=== PATIENT | male | born 1940 | race Caucasian/White ===

== ENCOUNTER 2022-11-20 10:37 | Inpatient (IN) | payer MEDICARE, OTHER, SELFPAY ==
[2022-11-20] VITALS (40 sets, daily range): BP systolic 109–164; BP diastolic 47–105; PULSE 72–103; RESP 13–25; TEMP 36.1–36.8; O2SAT 95–100; BMI 22.8
--- NOTE | ~2022-11-20 | XR_ITS ---
XR chest 1V portable DATE: 11/22/2022 12:21 INDICATION: Lung crackles TECHNIQUE: Portable upright AP chest on 11/22/2022 at 1216 hours COMPARISON: None FINDINGS: There is suggestion of a large mass density overlying the left perihilar region; differenti al diagnosis includes pulmonary malignancy versus prominent pulmonary consolidation. There is patchy infiltrate throughout much of the left lung and right lower lung. Heart size is not optimally evaluated because of obscured left cardiac margin due to infiltrate and m agnification due to portable projection. A prosthetic cardiac valve is noted. There is aortic arch ca lcification. Diffuse osteopenia. IMPRESSION: Large mass density overlying the left perihilar area, suspicious for lung cancer; conside r CT thorax with IV contrast material for further evaluation Patchy bilateral pulmonary infiltrates, which may be due to pneumonia, pulmonary edema and/or aspirat ion Reviewed, dictated and finalized at location A. IMPRESSION: Large mass density overlying the left perihilar area, suspicious fo r lung cancer; consider CT thorax with IV contrast material for further evaluat ion Patchy bilateral pulmonary infiltrates, which may be due to pneumonia, pulmonar y edema and/or aspiration
--- NOTE | ~2022-11-20 | CT_ITS ---
EXAMINATION: CT brain wo con DATE: 11/23/2022 20:19 INDICATION: dizziness and balance issues. . TECHNIQUE: Computed tomography (CT) of the head was performed without intravenous contrast. The mA wa s adjusted according to patient size. Iterative reconstruction technique was employed. The dose-lengt h product was 681.00 mGy-cm. COMPARISON: None. FINDINGS: No acute intracranial hemorrhage or extra-axial fluid collection. No hydrocephalus, mass, or herniation. No acute ischemic infarct. Unremarkable dural venous sinus attenuation. No acute osseous abnormality. Thinning of the calvarium overlying the left frontal lobe with surround ing circumscribed cortical lucencies. Right mastoid fluid with surrounding sclerosis, dependent mucosal thickening versus air-fluid level i n the right maxillary sinus, the remaining aerated spaces are clear aerated spaces are clear. Moderate atrophy and severe chronic white matter change. Atherosclerotic intracranial calcification. Bilateral lens replacements. Bilateral basal ganglia calcification. IMPRESSION: 1. No acute intracranial process. 2. Presumed postsurgical/post therapeutic change in the left frontal bone, correlate with history and physical exam. 3. Right mastoid fluid with sclerosis, as can be seen with mastoiditis in the appropriate clinical co ntext. 4. Potential dependent sphenoid sinus fluid may represent acute sinusitis. Reviewed, dictated and finalized at location K. IMPRESSION: 1. No acute intracranial process. 2. Presumed postsurgical/post therapeutic change in the left frontal bone, braxton elate with history and physical exam. 3. Right mastoid fluid with sclerosis, as can be seen with mastoiditis in the a ppropriate clinical context. 4. Potential dependent sphenoid sinus fluid may represent acute sinusitis.
--- NOTE | ~2022-11-20 | CT_ITS ---
EXAMINATION: CT diagnostic chest w con DATE: 11/22/2022 16:46 INDICATION: Left lung mass seen on chest x-ray TECHNIQUE: Computed tomography (CT) of the chest was performed with 75 cc Omnipaque 350 intravenous c ontrast. The dose-length product was 373.83 mGy-cm. Automated exposure control and iterative reconstr uction technique were employed. COMPARISON: Chest x-ray dated 11/22/2022 FINDINGS: There is a large left upper lobe mass measuring 9.6 x 7.8 x 6.1 cm, consistent with broncho genic carcinoma until proven otherwise. Small left pleural effusion. There is an 11 mm right lower lo be nodule, image 60. There are are coarse interstitial changes peripherally, likely chronic fibrosis. There is a 2 cm right upper lobe nodule, image 22. There are scattered calcified granulomas of the l corwin parenchyma. No pneumothorax. The left upper lobe mass appears to invade the mediastinum with mass effect on the left pulmonary artery. There is mediastinal and bilateral hilar lymphadenopathy, consi stent with metastatic disease. There is a prosthetic aortic valve. Moderate thoracic spondylosis. The re are gallstones. There is renal atrophy, partially visualized. IMPRESSION: 1. Bilateral pulmonary nodules/masses, largest in the left upper lobe measuring up to 9.6 cm, compati ble with either primary malignancy and/or metastatic disease. Metastatic disease to the mediastinum a nd bilateral hilar lymph nodes. 2: Small left pleural effusion. 3: Coarse bilateral interstitial infiltrates which may reflect interstitial fibrosis. Reviewed, dictated and finalized at location A. IMPRESSION: 1. Bilateral pulmonary nodules/masses, largest in the left upper lobe measuring up to 9.6 cm, compatible with either primary malignancy and/or metastatic dise ase. Metastatic disease to the mediastinum and bilateral hilar lymph nodes. 2: Small left pleural effusion. 3: Coarse bilateral interstitial infiltrates which may reflect interstitial fi brosis.
--- NOTE | 2022-11-20 10:45 | ECG_ITS ---
Measurements Intervals [place] Rate: 77 P: 83 ID: [id number] QRS: 3 QRSD: 108 T: 0 QT: 208 QTc: 235 Interpretive Statements SINUS RHYTHM WITH FIRST DEGREE AV BLOCK LOW QRS VOLTAGE IN PRECORDIAL LEADS [QRS DEFLECTION < 1.0 mV IN CHEST LEADS] RIGHT BUNDLE BRANCH BLOCK ABNORMAL ECG NO PREVIOUS ECG AVAILABLE FOR COMPARISON Electronically Signed On 11-20-2022 13:34:40 CDT by David Tabor M.D.
[2022-11-20 11:16] LABS: Basophils Absolute Auto 0.1 K/mm3 (0.0-0.1); Basophils Percent Auto 0.6 % (0.2-1.2); Eosinophils Absolute Auto 0.1 K/mm3 (0-0.3); Eosinophils Percent Auto 0.6 % (0-4.4); Hematocrit 30.6 % (42.0-52.0); Hemoglobin 9.7 g/dL (14.0-18.0); Immature Granulocyte Absolute 0.07 K/mm3 (0.00-0.031); Immature Granulocyte Percent A 0.6 % (0-0.5); Lymphocytes Absolute Auto 1.05 K/mm3 (0.9-3.2); Lymphocytes Percent Auto 9.6 % (18.3-44.2); Mean Corpuscular HGB Conc 31.7 g/dl (32-36); Mean Corpuscular Hemoglobin 28.3 pg (26-34); Mean Corpuscular Volume 89.2 fl (80-100); Mean Platelet Volume 8.7 fl (7.4-10.4); Monocytes Percent Auto 8.8 % (2.6-8.5); Neutrophils Absolute Auto 8.7 K/mm3 (1.3-6.7); Neutrophils Percent Auto 79.8 % (45.5-73.1); Platelet Count Result 489 k/mm3 (150-375); Red Blood Count 3.43 M/mm3 (4.6-6.20); White Blood Count 10.9 K/mm3 (4.5-10.0)
[2022-11-20 11:26] LABS: Alanine Aminotransferase 16 U/L (6-50); Albumin Level 4.2 g/dL (3.5-5.1); Alkaline Phosphatase 103 U/L (38-126); Anion Gap 6 mmol/L (8-16); Aspartate Amino Transferase 34 U/L (17-59); Bilirubin,Total 0.4 mg/dL (0.2-1.3); Blood Urea Nitrogen 47 mg/dL (9-20); Calcium 13.2 mg/dL (8.4-10.2); Carbon Dioxide 30 mmol/L (22-30); Chloride 99 mmol/L (98-107); Estimated CRCL calculation 29 ml/min; Estimated Glomerular Filt Rate 34; Glucose 115 mg/dL (65-110); Potassium 4.6 mmol/L (3.4-5.0); Sodium 135 mmol/L (137-145)
--- NOTE | 2022-11-20 12:40 | ED.GENADULT ---
HPI - General Adult General Chief complaint: Dizziness Stated complaint: dizzy/weak x 10 days, sent by PCP Time Seen by Provider: 11/20/22 11:10 History of Present Illness HPI narrative: 82-year-old male with history of urinary retention presented the emergency department for evaluation of increased lethargy over the course of the last week. Patient reports he did have a ground-level fall approximately 1 week ago but denies striking head denies loss consciousness. Patient states he does have issues with urinary retention and did have follow-up with his primary care physician for this lethargy. On patient's outpatient labs he had a creatinine of 1.5 and a calcium of 13. On the labs today patient has a creatinine of 1.9 and a calcium of 13.2. Related Data Home Medications Medication Instructions Recorded Confirmed aspirin 81 mg chewable tablet 81 mg PO DAILY 11/20/22 11/20/22 atorvastatin 20 mg tablet 20 mg PO DAILY 11/20/22 11/20/22 clopidogrel 75 mg tablet (Plavix) 75 mg PO DAILY 11/20/22 11/20/22 cyanocobalamin (vitamin B-12) 1,000 mcg subcut MONTHLY 11/20/22 11/20/22 1,000 mcg/mL injection solution (Dodex) donepezil 10 mg tablet (Aricept) 10 mg PO DAILY 11/20/22 11/20/22 finasteride 5 mg tablet (Proscar) 5 mg PO DAILY 11/20/22 11/20/22 hydrochlorothiazide 25 mg tablet 25 mg PO DAILY 11/20/22 11/20/22 lisinopril 40 mg tablet 20 mg PO DAILY 11/20/22 11/20/22 metformin 1,000 mg tablet 1,000 mg PO BID 11/20/22 11/20/22 metoprolol tartrate 50 mg tablet 50 mg PO BID 11/20/22 11/20/22 (Lopressor) nifedipine 30 mg tablet,extended 30 mg PO BID 11/20/22 11/20/22 release 24 hr (Procardia XL) Allergies Allergy/AdvReac Type Severity Reaction Status Date / Time No Known Allergies Allergy Verified 11/20/22 15:42 Review of Systems Review of Systems: All systems reviewed & are unremarkable except as noted in HPI and below PMFSH Past Medical History Medical History (Updated 11/20/22 @ 16:10 by Judith Starks NP) Anemia BPH (benign prostatic hyperplasia) CAD (coronary artery disease) Dementia DM2 (diabetes mellitus, type 2) HTN (hypertension), malignant Hx of primary tuberculosis Hyperlipidemia TIA (transient ischemic attack) Surgical History Surgical History (Updated 11/20/22 @ 14:16 by Judith Starks NP) H/O cataract extraction 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 He has 5 children. He is retired from the [employer]. It occasionally drinks a beer. His is the durable power of document review attorney for healthcare code status full code Smoking status: Never smoker Alcohol intake: never Substance use: never Substance use type: does not use Lack of Transportation: No Lack of Food: Never True Current Housing: I Have Housing Concerned About Future Housing: No Difficulty Paying Gas/Electric Bills: No Difficulty Paying for Meds: No Currently Unemployed: No Education: Don't Know Difficulty w/ Childcare or Family Care: No Spiritual care concerns: No Exam Narrative: APPEARANCE: Well appearing, no pain, no distress, well-nourished. HEAD: normocephalic, atraumatic. EYES: PERRLA/EOMI, conjunctivae clear. NOSE: Normal no drainage NECK: Supple. No adenopathy, no masses. RESPIRATORY: Airway patent, respirations nonlabored. Clear to auscultation bilaterally, no rales, rhonchi, wheezing. CARDIOVASCULAR: Regular rate and rhythm without murmurs rubs or gallops. ABDOMINAL: Soft, nontender, nondistended, normal bowel sounds, suprapubic fullness MUSCULOSKELETAL: Moves all extremities. Strength/ROM intact, No oniel
[2022-11-20] MEDS: SODIUM CHLORIDE 0.9% IV 1,000 ML 999 ML IV CONT (13:13)
--- NOTE | 2022-11-20 14:08 | PM.IMHP ---
H&P: HPI History of Present Illness Date/Time: 11/20/22 14:08 Chief Complaint: Dizziness Narrative: This is an 82-year-old male patient stated he has had decreased urination over the last 2 days and is been more lethargic over the course of the last week. The patient had a ground level fall a week ago but denies striking his head or losing consciousness. 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 The patient has had urinary retention in the past. The patient was given L IV fluids in the emergency room. BUN is 47 creatinine 1.9. No previous labs for comparison. H&H is 9.7 and 30.6. The patient is being admitted to observation status on the date of service 11/20/2022. Review of Systems Review of Systems: All systems reviewed & are unremarkable except as noted in HPI and below Constitutional: Constitutional: Reports as per HPI and Reports no additional constitutional complaints Eyes: Eyes: Reports as per HPI and Reports no additional eye complaints ENT: Reports system reviewed and no additional complaints, except as documented and Reports Normal hearing present Cardiovascular: Cardiovascular: Reports no additional cardiovascular complaints Respiratory: Respiratory: Reports no additional respiratory complaints and Reports no additional respiratory complaints Gastrointestinal: Gastrointestinal: Reports as per HPI and Reports no additional gastrointestinal complaints Musculoskeletal: Musculoskeletal: Reports no additional musculoskeletal complaints Integumentary/Breasts: Skin/Breast: Reports system reviewed and no additional complaints, except as docu and Reports as per HPI Neurologic: Reports system reviewed and no additional complaints, except as documented, Reports as per HPI and Reports Normal hearing present Psychiatric: Psychiatric: Reports no additional psychiatric complaints and Reports as per HPI Endocrine: Endocrine: Reports no additional endocrine complaints Hematologic/Lymphatic: Hematologic/Lymphatic: Reports no additional hematologic/lymphatic complaints Allergic/Immunologic: Allergic/Immunologic: Reports no additional allergic/immunologic complaints [facility] Past Medical History Medical History (Updated 11/20/22 @ 16:10 by Judith Starks NP) Anemia BPH (benign prostatic hyperplasia) CAD (coronary artery disease) Dementia DM2 (diabetes mellitus, type 2) HTN (hypertension), malignant Hx of primary tuberculosis Hyperlipidemia TIA (transient ischemic attack) Surgical History Surgical History (Updated 11/20/22 @ 14:16 by Judith Starks NP) H/O cataract extraction 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 He has 5 children. He is retired from the [employer]. It occasionally drinks a beer. 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 for healthcare code status full code Smoking status: Never smoker Alcohol intake: never Substance use: never Substance use type: does not use Lack of Transportation: No Lack of Food: Never True Current Housing: I Have Housing Concerned About Future Housing: No Difficulty Paying Gas/Electric Bills: No Difficulty Paying for Meds: No Currently Unemployed: No Education: Don't Know Difficulty w/ Childcare or Family Care: No Spiritual care concerns: No Meds Home Medications and Allergies Home Medications Medication Instructions Recorded Confirmed Type aspirin 81 mg chewable tablet 81 mg PO DAILY 11/20/22 11/20/22 History atorvastatin 20 mg tablet 20 mg PO DAILY 11/20/22 11/20/22 History clopido
[2022-11-20 14:30] LABS: Appearance Urine Clear (Clear); Bacteria Urine None Seen /hpf; Bilirubin Urine Negative (Negative); Blood Urine Negative (Negative); Color Urine Yellow (Yellow); Glucose Urine UA Negative (Negative); Ketones Urine Negative (Negative); Leukocyte Esterase Ur Negative LEU/UL (Negative); Nitrate Urine Negative (Negative); Non Pathogenic Casts 0-2; Protein Urine 1+ mg/dL (Negative); RBC Urine 0-2 /hpf (0-2); Specific Grav Ur 1.016 (1.001-1.035); Squamous Epithelial Cell Urine None seen /hpf (Few); Urobilinogen Urine 0.2 mg/dL (<2.0); WBC Urine 0-5 /hpf
[2022-11-20 14:36] LABS: Add Urine Microscopic? YES
[2022-11-20 17:09] LABS: Glucose Point of Care 109 mg/dl (65-105)
[2022-11-20] MEDS: SODIUM CHLORIDE 0.9% IV 1,000 ML 125 ML IV CONT (17:22)
[2022-11-20 20:20] LABS: Glucose Point of Care 111 mg/dl (65-105)
[2022-11-20] MEDS: METOPROLOL TARTRATE 50 MG TAB PO (20:23)
[2022-11-21] VITALS (12 sets, daily range): BP systolic 150–171; BP diastolic 51–82; PULSE 68–85; RESP 14–20; TEMP 36.4–37.1; O2SAT 94–98
[2022-11-21 05:10] LABS: Basophils Absolute Auto 0.1 K/mm3 (0.0-0.1); Basophils Percent Auto 0.6 % (0.2-1.2); Eosinophils Absolute Auto 0.1 K/mm3 (0-0.3); Eosinophils Percent Auto 0.7 % (0-4.4); Hematocrit 30.2 % (42.0-52.0); Hemoglobin 9.4 g/dL (14.0-18.0); Immature Granulocyte Absolute 0.09 K/mm3 (0.00-0.031); Immature Granulocyte Percent A 0.6 % (0-0.5); Lymphocytes Absolute Auto 1.64 K/mm3 (0.9-3.2); Lymphocytes Percent Auto 11.7 % (18.3-44.2); Mean Corpuscular HGB Conc 31.1 g/dl (32-36); Mean Corpuscular Hemoglobin 27.5 pg (26-34); Mean Corpuscular Volume 88.3 fl (80-100); Mean Platelet Volume 8.9 fl (7.4-10.4); Monocytes Absolute Auto 1.5 K/mm3 (0.1-0.6); Neutrophils Absolute Auto 10.5 K/mm3 (1.3-6.7); Neutrophils Percent Auto 75.4 % (45.5-73.1); Platelet Count Result 487 k/mm3 (150-375); Red Blood Count 3.42 M/mm3 (4.6-6.20); Red Cell Distribution Width 15.6 % (11.5-14.5)
[2022-11-21 05:30] LABS: Lactic Acid Reflex 1.9 mmol/L (0.7-2.0)
[2022-11-21 05:33] LABS: Alanine Aminotransferase 16 U/L (6-50); Albumin Level 3.8 g/dL (3.5-5.1); Alkaline Phosphatase 103 U/L (38-126); Anion Gap 7 mmol/L (8-16); Aspartate Amino Transferase 35 U/L (17-59); Bilirubin,Total 0.6 mg/dL (0.2-1.3); Blood Urea Nitrogen 34 mg/dL (9-20); Calcium 12.3 mg/dL (8.4-10.2); Carbon Dioxide 27 mmol/L (22-30); Chloride 96 mmol/L (98-107); Estimated CRCL calculation 41 ml/min; Estimated Glomerular Filt Rate 53; Glucose 129 mg/dL (65-110); Magnesium 1.3 mg/dL (1.6-2.3); Potassium 4.4 mmol/L (3.4-5.0); Sodium 130 mmol/L (137-145)
[2022-11-21 06:44] LABS: Thyroid Stimulating Hormone Reflex 0.945 uIU/mL (0.465-4.68)
[2022-11-21 08:20] LABS: Glucose Point of Care 128 mg/dl (65-105)
[2022-11-21] MEDS: TAMSULOSIN HCL 0.4 MG CAPSULE PO (08:43)
[2022-11-21] MEDS: ATORVASTATIN 20 MG TABLET PO (08:43)
[2022-11-21] MEDS: CLOPIDOGREL BISULFATE 75 MG TABLET PO (08:43)
[2022-11-21] MEDS: DONEPEZIL HCL 10 MG TABLET PO (08:43)
[2022-11-21] MEDS: ASPIRIN 81 MG CHEWABLE TABLET PO (08:43)
[2022-11-21] MEDS: lisinopriL 20 MG TABLET PO (08:43)
[2022-11-21] MEDS: METOPROLOL TARTRATE 50 MG TAB PO ×2 (08:43→20:08)
[2022-11-21] MEDS: FINASTERIDE 5 MG TABLET PO (08:44)
[2022-11-21] MEDS: SODIUM CHLORIDE 0.9% IV 1,000 ML 125 ML IV CONT ×3 (08:49→23:35)
--- NOTE | 2022-11-21 10:21 | PM.IMPN ---
Progress Note: A&P Assessment and Plan (1) GEETA (acute kidney injury): Code(s): N17.9 - Acute kidney failure, unspecified Status: Acute Assessment and Plan: Most likely related to obstructive uropathy. A Philippe catheter was placed it is reported that the patient had 2 L out. 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 Urology has been consulted for obstructive uropathy. Continue with IV fluids and monitor renal function in the a.m.. No other labs for comparison. (2) Urinary retention: Code(s): R33.9 - Retention of urine, unspecified Status: Acute Assessment and Plan: A Philippe catheter was placed and draining clear yellow urine. (3) DM2 (diabetes mellitus, type 2): Code(s): E11.9 - Type 2 diabetes mellitus without complications Status: Acute Assessment and Plan: Accu-Cheks AC and HS with sliding scale insulin and check A1c. Hold metformin due to the acute renal failure. (4) CAD (coronary artery disease): Code(s): I25.10 - Atherosclerotic heart disease of [place] coronary artery without angina pectoris Status: Acute Assessment and Plan: Continue with aspirin, atorvastatin, Plavix, and lisinopril (5) Hyperlipidemia: Code(s): E78.5 - Hyperlipidemia, unspecified Status: Acute Assessment and Plan: Continue with atorvastatin (6) Dementia: Code(s): F03.90 - Unspecified dementia, unspecified severity, without behavioral disturbance, psychotic disturbance, mood disturbance, and anxiety Status: Acute Assessment and Plan: Continue with Aricept (7) HTN (hypertension), malignant: Code(s): I10 - Essential (primary) hypertension Status: Acute Assessment and Plan: Continue with hydrochlorothiazide, lisinopril, and Procardia. (8) BPH (benign prostatic hyperplasia): Code(s): N40.0 - Benign prostatic hyperplasia without lower urinary tract symptoms Status: Acute Assessment and Plan: The patient is already on Proscar and I added Flomax. Urology consultation greatly be appreciated. Subjective Date/time seen: 11/21/22 10:21 Interval history: No complaints Exam Const: General: cooperative, healthy appearing, comfortable, no acute distress, well developed, alert, awake, Physically active and thin Nutritional Appearance: thin Orientation/consciousness: oriented to person and oriented to place Limitations: no limitations HENMT: Head: normal to inspection, No palpable skull fracture present, normocephalic, atraumatic and abrasion Ears: external ears normal and hearing grossly impaired Face/Nose/Sinus: Normal external nose present and Normal nares present Other: The patient forgot his hearing aids at home and is hard of hearing. Eyes: General: appearance normal, both eyes and all related structures Alignment and Position: alignment normal Periorbital: periorbital findings normal Eyelids: eyelids normal Sclera: sclerae normal Pupils: Equal, round and reactive pupils present EOM: EOMs intact bilaterally Neck: Neck: normal visual inspection, full ROM, no lymphadenopathy, trachea midline and supple Chest: Chest palpation & inspection: normal inspection of the chest Resp: Effort & Inspection: normal respiratory effort Auscultation: clear to auscultation bilaterally Cardio: Palpation: normal PMI Rate: regular rate Rhythm: regular rhythm Heart sounds: S1 normal heart sound present and S2 normal heart sound present Peripheral pulses: Peripheral pulses 2+ throughout GI: Inspection: normal to inspection Auscultation: normal bowel sounds Rectal Exam: deferred Urinary Catheter: Urinary Catheter: patent and draining and urine clear Back/Spine/Pelvis: Cervical Spine: cervical ROM normal Skin: General skin exam: normal color Lesions: no lesions Rashes: no rashes Trauma: no lacerations or abrasions Wounds: no wounds Hair:
[2022-11-21] MEDS: NIFEdipine 30 MG TAB.ER.24 PO ×2 (12:12→20:08)
[2022-11-21 12:20] LABS: Glucose Point of Care 106 mg/dl (65-105)
--- NOTE | 2022-11-21 12:27 | WPDURCON ---
Assessment and Plan Assessment and plan (1) Obstructed, uropathy: Code(s): N13.9 - Obstructive and reflux uropathy, unspecified Status: Acute Assessment and Plan: - improving with Philippe catheter - continue monitoring with primary medical team (2) Urinary retention: Code(s): R33.9 - Retention of urine, unspecified Status: Acute Assessment and Plan: - keep catheter in place - agree with tamsulosin and finasteride - will need outpatient urology visit for possible voiding trial in about 1 week. Urology Consult Note HPI Date Seen: 11/21/22 Requesting Physician: David Araiza MD Primary Care Provider: Tejinder Fatima, Consult Narrative Narrative: Fito Arboleda Jr. is a 82 year old male with urine retention. He felt well until yesterday. He came to the ER and elevated creatinine was found. A catheter was placed with significant residual urine. I was not able to find imaging. His creatinine has improved with the catheter. He feels well. He states a few years ago he needed a catheter. He does not see a urologist currently. He was not on BPH medications. Tamsulosin and finasteride have been started. 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 He has 5 children. He is retired from the [employer]. It occasionally drinks a beer. His is the durable power of banking attorney for healthcare code status full code Smoking status: Never smoker Alcohol intake: never Substance use: never Substance use type: does not use Lack of Transportation: No Lack of Food: Never True Current Housing: I Have Housing Concerned About Future Housing: No Difficulty Paying Gas/Electric Bills: No Difficulty Paying for Meds: No Currently Unemployed: No Education: Don't Know Difficulty w/ Childcare or Family Care: No Spiritual care concerns: No Meds Home Medications and Allergies Home Medications Medication Instructions Recorded Confirmed Type aspirin 81 mg chewable tablet 81 mg PO DAILY 11/20/22 11/20/22 History atorvastatin 20 mg tablet 20 mg PO DAILY 11/20/22 11/20/22 History clopidogrel 75 mg tablet (Plavix) 75 mg PO DAILY 11/20/22 11/20/22 History cyanocobalamin (vitamin B-12) 1,000 mcg subcut MONTHLY 11/20/22 11/20/22 History 1,000 mcg/mL injection solution (Dodex) donepezil 10 mg tablet (Aricept) 10 mg PO DAILY 11/20/22 11/20/22 History finasteride 5 mg tablet (Proscar) 5 mg PO DAILY 11/20/22 11/20/22 History hydrochlorothiazide 25 mg tablet 25 mg PO DAILY 11/20/22 11/20/22 History lisinopril 40 mg tablet 20 mg PO DAILY 11/20/22 11/20/22 History metformin 1,000 mg tablet 1,000 mg PO BID 11/20/22 11/20/22 History metoprolol tartrate 50 mg tablet 50 mg PO BID 11/20/22 11/20/22 History (Lopressor) nifedipine 30 mg tablet,extended 30 mg PO BID 11/21/22 11/21/22 History release 24 hr Allergies Allergy/AdvReac Type Severity Reaction Status Date / Time No Known Allergies Allergy Verified 11/20/22 15:42 Vital Signs Vital Signs -
--- NOTE | 2022-11-21 15:07 | PCCCNOTE ---
On 11/21/22, the student, Nadine Perea, provided care and completed [facility] documentation on this patient. I have reviewed the student's documentation and agree with the findings.
[2022-11-21] MEDS: LORazepam INJ (*CRX) 2 MG/ML VIAL 0.25 MG IV PUSH (15:26)
[2022-11-21 16:36] LABS: Hemoglobin A1C 5.9 % (<5.7)
[2022-11-21 16:55] LABS: Glucose Point of Care 174 mg/dl (65-105)
[2022-11-21 18:11] LABS: Magnesium 1.4 mg/dL (1.6-2.3)
[2022-11-21 20:33] LABS: Glucose Point of Care 172 mg/dl (65-105)
[2022-11-22] VITALS (12 sets, daily range): BP systolic 124–179; BP diastolic 56–77; PULSE 68–91; RESP 18–24; TEMP 36.3–37.4; O2SAT 94–100
[2022-11-22] MEDS: LORazepam INJ (*CRX) 2 MG/ML VIAL 0.25 MG IV PUSH (02:28)
[2022-11-22 05:03] LABS: Basophils Absolute Auto 0.1 K/mm3 (0.0-0.1); Basophils Percent Auto 0.4 % (0.2-1.2); Eosinophils Absolute Auto 0.2 K/mm3 (0-0.3); Eosinophils Percent Auto 1.3 % (0-4.4); Hematocrit 28.5 % (42.0-52.0); Hemoglobin 9.1 g/dL (14.0-18.0); Immature Granulocyte Absolute 0.11 K/mm3 (0.00-0.031); Immature Granulocyte Percent A 0.7 % (0-0.5); Lymphocytes Absolute Auto 1.47 K/mm3 (0.9-3.2); Lymphocytes Percent Auto 9.6 % (18.3-44.2); Mean Corpuscular HGB Conc 31.9 g/dl (32-36); Mean Corpuscular Hemoglobin 27.7 pg (26-34); Mean Corpuscular Volume 86.9 fl (80-100); Monocytes Absolute Auto 1.6 K/mm3 (0.1-0.6); Monocytes Percent Auto 10.6 % (2.6-8.5); Neutrophils Absolute Auto 11.8 K/mm3 (1.3-6.7); Neutrophils Percent Auto 77.4 % (45.5-73.1); Platelet Count Result 464 k/mm3 (150-375); Red Blood Count 3.28 M/mm3 (4.6-6.20); Red Cell Distribution Width 15.4 % (11.5-14.5); White Blood Count 15.3 K/mm3 (4.5-10.0)
[2022-11-22 05:19] LABS: Anion Gap 6 mmol/L (8-16); Blood Urea Nitrogen 25 mg/dL (9-20); Calcium 11.1 mg/dL (8.4-10.2); Carbon Dioxide 23 mmol/L (22-30); Chloride 100 mmol/L (98-107); Estimated CRCL calculation 58 ml/min; Estimated Glomerular Filt Rate > 60; Glucose 220 mg/dL (65-110); Potassium 3.6 mmol/L (3.4-5.0); Sodium 129 mmol/L (137-145)
[2022-11-22] MEDS: SODIUM CHLORIDE 0.9% IV 1,000 ML 125 ML IV CONT (07:35)
[2022-11-22 08:44] LABS: Glucose Point of Care 235 mg/dl (65-105)
[2022-11-22] MEDS: INSULIN ASPART (*BKC) 100 UNITS/ML SUB-Q (09:16)
--- NOTE | 2022-11-22 10:36 | PM.IMPN ---
Progress Note: A&P Assessment and Plan (1) GEETA (acute kidney injury): Code(s): N17.9 - Acute kidney failure, unspecified Status: Acute Assessment and Plan: Most likely related to obstructive uropathy. A Philippe catheter was placed it is reported that the patient had 2 L out. 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 Urology has been consulted for obstructive uropathy. Continue with IV fluids and monitor renal function in the a.m.. No other labs for comparison. (2) Urinary retention: Code(s): R33.9 - Retention of urine, unspecified Status: Acute Assessment and Plan: A Philippe catheter was placed and draining clear yellow urine. (3) DM2 (diabetes mellitus, type 2): Code(s): E11.9 - Type 2 diabetes mellitus without complications Status: Acute Assessment and Plan: Accu-Cheks AC and HS with sliding scale insulin and check A1c. Hold metformin due to the acute renal failure. (4) CAD (coronary artery disease): Code(s): I25.10 - Atherosclerotic heart disease of [place] coronary artery without angina pectoris Status: Acute Assessment and Plan: Continue with aspirin, atorvastatin, Plavix, and lisinopril (5) Hyperlipidemia: Code(s): E78.5 - Hyperlipidemia, unspecified Status: Acute Assessment and Plan: Continue with atorvastatin (6) Dementia: Code(s): F03.90 - Unspecified dementia, unspecified severity, without behavioral disturbance, psychotic disturbance, mood disturbance, and anxiety Status: Acute Assessment and Plan: Continue with Aricept (7) HTN (hypertension), malignant: Code(s): I10 - Essential (primary) hypertension Status: Acute Assessment and Plan: Continue with hydrochlorothiazide, lisinopril, and Procardia. (8) BPH (benign prostatic hyperplasia): Code(s): N40.0 - Benign prostatic hyperplasia without lower urinary tract symptoms Status: Acute Assessment and Plan: The patient is already on Proscar and I added Flomax. Urology consultation greatly be appreciated. (9) Paroxysmal A-fib: Code(s): I48.0 - Paroxysmal atrial fibrillation Status: Acute Assessment and Plan: Patient is currently on aspirin Plavix. Increased beta-nicole, rates controlled Fall risk no anticoagulation as now. No respiratory or cardiac symptoms. Denies chest pain Subjective Date/time seen: 11/22/22 10:36 Interval history: No new complaints. Episode of paroxysmal atrial fibrillation. ? History of this. Exam Const: General: cooperative, healthy appearing, comfortable, no acute distress, well developed, alert, awake, Physically active and thin Nutritional Appearance: thin Orientation/consciousness: oriented to person and oriented to place Limitations: no limitations HENMT: Head: normal to inspection, No palpable skull fracture present, normocephalic, atraumatic and abrasion Ears: external ears normal and hearing grossly impaired Face/Nose/Sinus: Normal external nose present and Normal nares present Other: The patient forgot his hearing aids at home and is hard of hearing. Eyes: General: appearance normal, both eyes and all related structures Alignment and Position: alignment normal Periorbital: periorbital findings normal Eyelids: eyelids normal Sclera: sclerae normal Pupils: Equal, round and reactive pupils present EOM: EOMs intact bilaterally Neck: Neck: normal visual inspection, full ROM, no lymphadenopathy, trachea midline and supple Chest: Chest palpation & inspection: normal inspection of the chest Resp: Effort & Inspection: normal respiratory effort Auscultation: clear to auscultation bilaterally Cardio: Palpation: normal PMI Rate: regular rate Rhythm: regular rhythm Heart sounds: S1 normal heart sound present and S2 normal heart sound present Peripheral pulses: Peripheral pulses 2+ througho
[2022-11-22 12:14] LABS: Glucose Point of Care 157 mg/dl (65-105)
--- NOTE | 2022-11-22 12:47 | PCCCNOTE ---
PASSR completed, NO Level II required.
--- NOTE | 2022-11-22 13:25 | PCOTNOTE ---
Attempted OT evaluation for second time today. Per RN patient not appropriate to see at this time and is asleep.
[2022-11-22] MEDS: FUROSEMIDE INJ 40 MG/4 ML VIAL IV PUSH (14:22)
--- NOTE | 2022-11-22 14:49 | PC.NURSE ---
This morning RN was in the patient's room when the provider came to round. Due to increased lethargy of the patient, RN expressed concerns of patient's ability to take PO medications safely. Provider stated OK to hold AM medications until more alert.
[2022-11-22 17:23] LABS: Glucose Point of Care 120 mg/dl (65-105)
[2022-11-22] MEDS: METOPROLOL TARTRATE 50 MG TAB 100 MG PO (20:23)
[2022-11-22] MEDS: NIFEdipine 30 MG TAB.ER.24 PO (20:23)
[2022-11-22 20:26] LABS: Glucose Point of Care 156 mg/dl (65-105)
[2022-11-23] VITALS (13 sets, daily range): BP systolic 110–121; BP diastolic 57–59; PULSE 61–94; RESP 18–21; TEMP 36.3–36.7; O2SAT 91–100
[2022-11-23 08:13] LABS: Glucose Point of Care 152 mg/dl (65-105)
[2022-11-23] MEDS: DONEPEZIL HCL 10 MG TABLET PO (08:25)
[2022-11-23] MEDS: METOPROLOL TARTRATE 50 MG TAB 100 MG PO ×2 (08:25→20:55)
[2022-11-23] MEDS: TAMSULOSIN HCL 0.4 MG CAPSULE PO (08:25)
[2022-11-23] MEDS: CLOPIDOGREL BISULFATE 75 MG TABLET PO (08:25)
[2022-11-23] MEDS: lisinopriL 20 MG TABLET PO (08:25)
[2022-11-23] MEDS: FINASTERIDE 5 MG TABLET PO (08:25)
[2022-11-23] MEDS: ASPIRIN 81 MG CHEWABLE TABLET PO (08:25)
[2022-11-23] MEDS: ATORVASTATIN 20 MG TABLET PO (08:25)
[2022-11-23] MEDS: NIFEdipine 30 MG TAB.ER.24 PO ×2 (08:26→20:55)
--- NOTE | 2022-11-23 10:35 | PM.IMPN ---
Progress Note: A&P Assessment and Plan (1) GEETA (acute kidney injury): Code(s): N17.9 - Acute kidney failure, unspecified Status: Acute Assessment and Plan: Resolved (2) Urinary retention: Code(s): R33.9 - Retention of urine, unspecified Status: Acute Assessment and Plan: A Philippe catheter was placed and draining clear yellow urine. Philippe catheter on discharge (3) DM2 (diabetes mellitus, type 2): Code(s): E11.9 - Type 2 diabetes mellitus without complications Status: Acute Assessment and Plan: Accu-Cheks AC and HS with sliding scale insulin and check A1c. Hold metformin due to the acute renal failure. (4) CAD (coronary artery disease): Code(s): I25.10 - Atherosclerotic heart disease of [place] coronary artery without angina pectoris Status: Acute Assessment and Plan: Continue with aspirin, atorvastatin, Plavix, and lisinopril (5) Hyperlipidemia: Code(s): E78.5 - Hyperlipidemia, unspecified Status: Acute Assessment and Plan: Continue with atorvastatin (6) Dementia: Code(s): F03.90 - Unspecified dementia, unspecified severity, without behavioral disturbance, psychotic disturbance, mood disturbance, and anxiety Status: Acute Assessment and Plan: Continue with Aricept (7) HTN (hypertension), malignant: Code(s): I10 - Essential (primary) hypertension Status: Acute Assessment and Plan: Continue with hydrochlorothiazide, lisinopril, and Procardia. (8) BPH (benign prostatic hyperplasia): Code(s): N40.0 - Benign prostatic hyperplasia without lower urinary tract symptoms Status: Acute Assessment and Plan: The patient is already on Proscar and I added Flomax. Urology consultation greatly be appreciated. (9) Paroxysmal A-fib: Code(s): I48.0 - Paroxysmal atrial fibrillation Status: Acute Assessment and Plan: Patient is currently on aspirin Plavix. Increased beta-nicole, rates controlled Fall risk no anticoagulation as now. Discussed options with patient. No respiratory or cardiac symptoms. 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 Exam Const: General: cooperative, healthy appearing, comfortable, no acute distress, well developed, alert, awake, Physically active and thin Nutritional Appearance: thin Orientation/consciousness: oriented to person and oriented to place Limitations: no limitations HENMT: Head: normal to inspection, No palpable skull fracture present, normocephalic, atraumatic and abrasion Ears: external ears normal and hearing grossly impaired Face/Nose/Sinus: Normal external nose present and Normal nares present Other: The patient forgot his hearing aids at home and is hard of hearing. Eyes: General: appearance normal, both eyes and all related structures Alignment and Position: alignment normal Periorbital: periorbital findings normal Eyelids: eyelids normal Sclera: sclerae normal Pupils: Equal, round and reactive pupils present EOM: EOMs intact bilaterally Neck: Neck: normal visual inspection, full ROM, no lymphadenopathy, trachea midline and supple Chest: Chest palpation & inspection: normal inspection of the chest Resp: Effort & Inspection: normal respiratory effort Auscultation: clear to auscultation bilaterally Cardio: Palpation: normal PMI Rate: regular rate Rhythm: regul
--- NOTE | 2022-11-23 10:53 | PCRCNOTE ---
HOME O2 EVAL COMPLETE, NO REQUIREMENTS
[2022-11-23 11:50] LABS: Glucose Point of Care 206 mg/dl (65-105)
[2022-11-23] MEDS: INSULIN ASPART (*BKC) 100 UNITS/ML SUB-Q ×2 (12:16→20:56)
--- NOTE | 2022-11-23 13:32 | PCPTNOTE ---
On 11/23/22, the student, [Cici Vasquez], provided care and completed [facility] documentation on this patient. I have reviewed the student's documentation and agree with the findings.
--- NOTE | 2022-11-23 16:12 | PCCCNOTE ---
On 11/23/22, the student, Sonia Crowley, provided care and completed [facility] documentation on this patient. I have reviewed the student's documentation and agree with the findings.
[2022-11-23 17:21] LABS: Glucose Point of Care 144 mg/dl (65-105)
[2022-11-23 20:42] LABS: Glucose Point of Care 214 mg/dl (65-105)
[2022-11-23] MEDS: LORazepam INJ (*CRX) 2 MG/ML VIAL 0.25 MG IV PUSH (20:57)
--- NOTE | 2022-11-24 00:24 | ECG_ITS ---
Measurements Intervals [place] Rate: 79 P: ID: 0 QRS: 0 QRSD: 96 T: 0 QT: 196 QTc: 226 Interpretive Statements SUPRAVENTRICULAR RHYTHM A; BASELINE ARTIFACT OBSCURES P-WAVES LOW QRS VOLTAGE IN PRECORDIAL LEADS [QRS DEFLECTION < 1.0 mV IN CHEST LEADS] CANNOT RULE OUT AN lATERAL MYOCARDIAL INFARCTION COMPARED TO ECG 11/20/2022 10:49:21 SUPRAVENTRICULAR RHYTHM NOW PRESENT Electronically Signed On 11-24-2022 15:02:52 CDT by Randa Vanessa M.D.
[2022-11-24] MEDS: HALOPERIDOL LACTATE 5 MG/ML VIAL IM (00:45)
[2022-11-24 04:00] VITALS: PULSE 90
[2022-11-24 05:24] VITALS: BP 128/66; PULSE 82; RESP 18; TEMP 36.9; O2SAT 92
[2022-11-24 08:08] LABS: Glucose Point of Care 167 mg/dl (65-105)
--- NOTE | 2022-11-24 08:43 | PCPTNOTE ---
Attempted to see patient for PT, however patient was sound asleep and RN asked to let patient sleep if patient was still sleeping.
[2022-11-24] MEDS: METOPROLOL TARTRATE 50 MG TAB 100 MG PO (09:39)
[2022-11-24] MEDS: TAMSULOSIN HCL 0.4 MG CAPSULE PO (09:39)
[2022-11-24] MEDS: DONEPEZIL HCL 10 MG TABLET PO (09:39)
[2022-11-24] MEDS: ATORVASTATIN 20 MG TABLET PO (09:40)
[2022-11-24] MEDS: ASPIRIN 81 MG CHEWABLE TABLET PO (09:40)
[2022-11-24] MEDS: FINASTERIDE 5 MG TABLET PO (09:40)
[2022-11-24] MEDS: lisinopriL 20 MG TABLET PO (09:40)
[2022-11-24] MEDS: CLOPIDOGREL BISULFATE 75 MG TABLET PO (09:40)
[2022-11-24] MEDS: NIFEdipine 30 MG TAB.ER.24 PO (09:40)
[2022-11-24 11:08] LABS: EDCOVIDSCREEN Negative (Negative)
--- NOTE | 2022-11-24 11:32 | PM.DS ---
DS: Admitting Diagnosis Discharge Date November 25, 2019 Admitting Diagnosis Urinary retention, acute kidney injury DS: Discharge Diagnosis Discharge Diagnosis (1) GEETA (acute kidney injury): Code(s): N17.9 - Acute kidney failure, unspecified Status: Acute Assessment and Plan: Resolved (2) Urinary retention: Code(s): R33.9 - Retention of urine, unspecified Status: Acute Assessment and Plan: A Hp[place]pe catheter was placed and draining clear yellow urine. Philippe catheter on discharge (3) DM2 (diabetes mellitus, type 2): Code(s): E11.9 - Type 2 diabetes mellitus without complications Status: Acute Assessment and Plan: Accu-Cheks AC and HS with sliding scale insulin and check A1c. Hold metformin due to the acute renal failure. (4) CAD (coronary artery disease): Code(s): I25.10 - Atherosclerotic heart disease of [place] coronary artery without angina pectoris Status: Acute Assessment and Plan: Continue with aspirin, atorvastatin, Plavix, and lisinopril (5) Hyperlipidemia: Code(s): E78.5 - Hyperlipidemia, unspecified Status: Acute Assessment and Plan: Continue with atorvastatin (6) Dementia: Code(s): F03.90 - Unspecified dementia, unspecified severity, without behavioral disturbance, psychotic disturbance, mood disturbance, and anxiety Status: Acute Assessment and Plan: Continue with Aricept (7) HTN (hypertension), malignant: Code(s): I10 - Essential (primary) hypertension Status: Acute Assessment and Plan: Continue with hydrochlorothiazide, lisinopril, and Procardia. (8) BPH (benign prostatic hyperplasia): Code(s): N40.0 - Benign prostatic hyperplasia without lower urinary tract symptoms Status: Acute Assessment and Plan: The patient is already on Proscar and I added Flomax. Urology consultation greatly be appreciated. (9) Paroxysmal A-fib: Code(s): I48.0 - Paroxysmal atrial fibrillation Status: Acute Assessment and Plan: Patient is currently on aspirin Plavix. Increased beta-nicole, rates controlled Fall risk no anticoagulation as now. Discussed options with patient. No respiratory or cardiac symptoms. 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 Urology was consulted and Philippe was placed. Kidney acute kidney injury is now resolved. He will need follow-up Urology regarding this. Also during hospitalization patient went into paroxysmal atrial fibrillation. Patient has significant fall risk and did not want start any anticoagulation. He is also on aspirin and Plavix. Rates are now controlled he is on a beta-nicole. Otherwise a new pulmonary mass was also found. Patient reports a history of tuberculosis 30+ years ago. He has also a past smoker and quit approximately 30 years ago. We discussed options for biopsy and evaluation by Oncology however patient declined at this time. He wanted to follow-up his primary care physician speak with his ago about possibly getting this worked up as an outpatient. But as of right now he was not wanting anything done. Time Spent with Patient Time attestation: Total time spent providing and/or coordinating discharge services: Exam Const: General: cooperative, healthy appearing, comfortable, no acute distress, well developed, alert, awake, Physically active and thin Nutritional Appear
[2022-11-24 11:55] LABS: Glucose Point of Care 182 mg/dl (65-105)
[2022-11-24 14:00] VITALS: BP 117/58; PULSE 76; RESP 20; TEMP 36.9; O2SAT 96
== END 2022-11-24 16:09 | DRG 684 ==
LOC: ANHED 14:16 → ANH2MED 14:47
PROVIDERS: Nurse Practitioner; Admitting Provider Chiropractor; Emergency Provider Emergency Medicine; PCP Internal Medicine; Visit Provider Chiropractor
DX: N17.9 Acute kidney failure, unspecified (principal); R33.9 Retention of urine, unspecified; N13.9 Obstructive and reflux uropathy, unspecified; N40.1 Benign prostatic hyperplasia with lower urinary tract symptoms; I25.10 Atherosclerotic heart disease of native coronary artery without angina pectoris; E11.9 Type 2 diabetes mellitus without complications; Z20.822 Contact with and (suspected) exposure to COVID-19; R91.8 Other nonspecific abnormal finding of lung field; E78.5 Hyperlipidemia, unspecified; F03.90 Unspecified dementia, unspecified severity, without behavioral disturbance, psychotic disturbance, mood disturbance, and anxiety; I10 Essential (primary) hypertension; I48.0 Paroxysmal atrial fibrillation; D64.9 Anemia, unspecified; Z86.11 Personal history of tuberculosis; Z87.891 Personal history of nicotine dependence; Z95.2 Presence of prosthetic heart valve; Z95.5 Presence of coronary angioplasty implant and graft
CPT/HCPCS: 36415; 51702; 70450; 71045; 71260; 80048; 80053; 81001; 82948; 83036; 83605; 83735; 84443; 85025; 87426; 93005; 94618; 96360; 96361; 97161; 97165; 97530; 97535; 99285; A9270; C9803; G0378; J1630; J1815; J1940; J2060; J7030; Q9967

== ENCOUNTER 2022-11-26 19:27 | Inpatient (IN) | payer MEDICARE, OTHER, SELFPAY ==
--- NOTE | ~2022-11-26 | CT_ITS ---
Clinical Indication: Dyspnea CT Scan of the Chest with Contrast: Technique: Contiguous sections were acquired throughout the chest after intravenous administration of 100 cc of Omnipaque 350. Dose reduction technique was used on this scan by utilizing automated expos ure control and iterative reconstruction technique. The dose-length product (DLP) was 668.98 mGy-cm. COMPARISON: 11/22/2022 Findings: There is subcarinal and precarinal lymphadenopathy, as well as mildly enlarged lymph nodes at the hil a. There is pulmonary embolus involving the right main pulmonary artery, extending into segmental bra nches in the right upper and lower lobes. There are also segmental level pulmonary emboli in the left lower lobe region. Suggestion of mild reversal of the LV-RV ratio, though there is motion artifact. There is no evidence of aortic dissection or aneurysm. Aortic valve replacement again noted. No peric ardial effusion. Small left pleural effusion is present. No right pleural effusion. Stable large, medial left upper lobe mass extending into the upper left mediastinum, with probable as sociated partial left upper lobe atelectasis. There is encasement and marked narrowing of the left up per lobe pulmonary artery branches as well as the left upper lobe bronchus. Smaller right-sided pulmo nary nodules are similar to prior exam, including posteriorly at the right lung apex (axial image 29) , adjacent to the superior major fissure (axial image 40), in the right lower lobe (axial image 68), and at the right lung base (axial image 81). Mild interstitial prominence is noted, nonspecific. Images through the upper abdomen reveal probable 1.8 cm solid right renal mass medially. Cholelithias is noted. Impression: Pulmonary emboli, as detailed above, involving the right main pulmonary artery, as well as segmental branches in the right upper and lower lobes, as well as segmental branches in the left lower lobe. Po ssible mild reversal of the LV-artery ratio, which could indicate right heart strain. Stable bilateral pulmonary masses/nodules, most extensive at the left upper lobe, compatible with met astatic/neoplastic disease. Associated partial left upper lobe atelectasis. Stable lymphadenopathy in the mediastinum and hilar regions, as detailed above, compatible with jordyn metastatic disease. Small left pleural effusion. 1.8 cm solid right renal mass. Renal cell carcinoma versus renal metastasis are likely considerations . Reviewed, dictated and finalized at location M. Impression: Pulmonary emboli, as detailed above, involving the right main pulmonary artery, as well as segmental branches in the right upper and lower lobes, as well as s egmental branches in the left lower lobe. Possible mild reversal of the LV-annamaria ry ratio, which could indicate right heart strain. Stable bilateral pulmonary masses/nodules, most extensive at the left upper lob e, compatible with metastatic/neoplastic disease. Associated partial left upper lobe atelectasis. Stable lymphadenopathy in the mediastinum and hilar regions, as detailed above, compatible with jordyn metastatic disease. Small left pleural effusion. 1.8 cm solid right renal mass. Renal cell carcinoma versus renal metastasis are likely considerations.
--- NOTE | ~2022-11-26 | XR_ITS ---
EXAMINATION: XR chest 1V Exam Date/Time: 11/26/2022 21:55 CDT HISTORY: weakness Comparison: X-ray chest 11/22/2022; CT chest 11/22/2022. RESULT: Lines, tubes, and devices: Cardiac valve replacement. Lungs and pleura: Diffuse fine and coarse reticular opacities. Redemonstration of the left hilar mas s. Multiple known pulmonary nodules are not radiographically visualized. Mild left costophrenic angle blunting. Cardiomediastinal silhouette: Stable. Other: No acute osseous or upper abdominal finding. IMPRESSION: Mild initial edema overlying chronic interstitial changes. Large left lung mass. Small left pleural e ffusion. Reviewed, dictated and finalized at location K. IMPRESSION: Mild initial edema overlying chronic interstitial changes. Large left lung mass . Small left pleural effusion.
--- NOTE | ~2022-11-26 | CT_ITS ---
EXAMINATION: CT brain wo con DATE: 11/26/2022 21:59 INDICATION: weakness . TECHNIQUE: Computed tomography (CT) of the head was performed without intravenous contrast. The mA wa s adjusted according to patient size. Iterative reconstruction technique was employed. The dose-lengt h product was 681.00 mGy-cm. COMPARISON: 11/23/2022. FINDINGS: Motion artifact in the superior images of the scan. No acute intracranial hemorrhage or extra-axial fluid collection. No hydrocephalus, mass, or herniation. No acute ischemic infarct. Unremarkable dural venous sinus attenuation. No acute osseous abnormality. Thinning of the calvarium overlying the left frontal lobe with surround ing circumscribed cortical lucencies, presumed postsurgical/post therapeutic change. Stable right mastoid fluid with surrounding sclerosis and no erosions, stable dependent mucosal thick ening versus air-fluid level in the right maxillary sinus, the remaining aerated spaces are clear. Moderate atrophy and chronic white matter change. Atherosclerotic intracranial calcification. 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 Bilateral lens replacements. Bilateral basal ganglia calcification. IMPRESSION: Mildly motion limited examination, within that constraint no acute intracranial process. Reviewed, dictated and finalized at location K.
--- NOTE | ~2022-11-26 | CT_ITS ---
EXAMINATION: CT lumbar spine wo con DATE: 11/26/2022 22:04 INDICATION: lower back pain, high calcium . TECHNIQUE: Computed tomography (CT) of the lumbar spine was performed without intravenous contrast. A utomated exposure control and iterative reconstruction technique were employed. The dose-length produ ct was 1209.87 mGy-cm. COMPARISON: None. FINDINGS: Severe atherosclerotic calcification. Hemorrhagic right midpole renal cyst. Simple left mid pole renal cyst. Bilateral renal cortical thinning. Cholelithiasis. Diverticulosis. 5 nonrib-bearing lumbar-type vertebral bodies. Pedicles intact. Multilevel mild anterior wedge deform ities, likely chronic or physiologic. Grade 1 retrolistheses at L3-4 and L5-S1, presumably on a degen erative basis. Multilevel severe degenerative disc disease, with large bridging osteophytes. Multilev el moderate facet arthropathy and interspinous narrowing. Congenitally narrow appearing central canal . Multilevel severe central canal narrowing at L3-4 through L5-S1. Multilevel bilateral severe neural foraminal narrowing IMPRESSION: No acute fracture or traumatic malalignment in the lumbar spine. Multilevel severe degenerative disc disease and central canal narrowing. Multilevel severe bilateral neural foraminal narrowing. Reviewed, dictated and finalized at location K. IMPRESSION: No acute fracture or traumatic malalignment in the lumbar spine. Multilevel sev ere degenerative disc disease and central canal narrowing. Multilevel severe bi lateral neural foraminal narrowing.
[2022-11-26 19:34] VITALS: BP 112/86; PULSE 90; RESP 18; TEMP 37.1; O2SAT 100
[2022-11-26 21:39] LABS: Basophils Percent Auto 0.2 % (0.2-1.2); Eosinophils Percent Auto 0.1 % (0-4.4); Hematocrit 29.3 % (42.0-52.0); Hemoglobin 9.3 g/dL (14.0-18.0); Immature Granulocyte Absolute 0.19 K/mm3 (0.00-0.031); Lymphocytes Absolute Auto 1.21 K/mm3 (0.9-3.2); Lymphocytes Percent Auto 6.3 % (18.3-44.2); Mean Corpuscular HGB Conc 31.7 g/dl (32-36); Mean Corpuscular Hemoglobin 28.1 pg (26-34); Mean Corpuscular Volume 88.5 fl (80-100); Mean Platelet Volume 9.3 fl (7.4-10.4); Monocytes Absolute Auto 1.5 K/mm3 (0.1-0.6); Monocytes Percent Auto 7.6 % (2.6-8.5); Neutrophils Absolute Auto 16.2 K/mm3 (1.3-6.7); Neutrophils Percent Auto 84.8 % (45.5-73.1); Platelet Count Result 514 k/mm3 (150-375); Red Blood Count 3.31 M/mm3 (4.6-6.20); Red Cell Distribution Width 16.2 % (11.5-14.5); White Blood Count 19.1 K/mm3 (4.5-10.0)
--- NOTE | 2022-11-26 21:39 | ECG_ITS ---
Measurements Intervals [place] Rate: 85 P: SC: 0 QRS: 6 QRSD: 91 T: 240 QT: 220 QTc: 262 Interpretive Statements POOR QUALITY ELECTROCARDIOGRAM BECAUSE OF BASELINE NOISE/ARTIFACT ATRIAL FIBRILLATION SUSPECTED NONSPECIFIC ST & T-WAVE ABNORMALITY COMPARED TO ECG 11/24/2022 00:40:12 ATRIAL FIBRILLATION POTENTIALLY PRESENT/POOR ECG QUALITY RESULTS AND DIFFICULT ATRIAL RHYTHM DIAGNOSIS Electronically Signed On 11-27-2022 7:58:43 CDT by David Tabor M.D.
--- NOTE | 2022-11-26 21:48 | ED.GENADULT ---
HPI - General Adult General Chief complaint: Recheck/Abnormal Lab/Rx Stated complaint: abnormal labs Time Seen by Provider: 11/26/22 20:04 History of Present Illness HPI narrative: this is an 82-year-old male presenting to ED with chief complaint of weakness. He was admitted here 1 week ago for acute kidney injury with urinary retention. Since then he was discharged to a nursing facility for rehabilitation. says that since then he has not been doing well. He has had decreased oral intake, he is weak fatigued and not able to walk. During his routine lab work they found his calcium was 13 so they sent him to the hospital to be evaluated for hypercalcemia. Related Data Home Medications Medication Instructions Recorded Confirmed aspirin 81 mg chewable tablet 81 mg PO DAILY 11/20/22 11/20/22 atorvastatin 20 mg tablet 20 mg PO DAILY 11/20/22 11/20/22 clopidogrel 75 mg tablet (Plavix) 75 mg PO DAILY 11/20/22 11/20/22 cyanocobalamin (vitamin B-12) 1,000 mcg subcut MONTHLY 11/20/22 11/20/22 1,000 mcg/mL injection solution (Dodex) donepezil 10 mg tablet (Aricept) 10 mg PO DAILY 11/20/22 11/20/22 finasteride 5 mg tablet (Proscar) 5 mg PO DAILY 11/20/22 11/20/22 hydrochlorothiazide 25 mg tablet 25 mg PO DAILY 11/20/22 11/20/22 lisinopril 40 mg tablet 20 mg PO DAILY 11/20/22 11/20/22 metformin 1,000 mg tablet 1,000 mg PO BID 11/20/22 11/20/22 nifedipine 30 mg tablet,extended 30 mg PO BID 11/21/22 11/21/22 release 24 hr Allergies Allergy/AdvReac Type Severity Reaction Status Date / Time No Known Allergies Allergy Verified 11/26/22 19:38 [facility] Past Medical History Medical History (Updated 11/27/22 @ 05:55 by Isaac Carpenter MD) Anemia BPH (benign prostatic hyperplasia) CAD (coronary artery disease) Dementia DM2 (diabetes mellitus, type 2) HTN (hypertension), malignant Hx of primary tuberculosis Hyperlipidemia TIA (transient ischemic attack) Surgical History Surgical History (Updated 11/20/22 @ 14:16 by Judith Starks NP) H/O cataract extraction 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 He has 5 children. He is retired from the [employer]. It occasionally drinks a beer. 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 A&O x1, Head: atraumatic. EYES: EOMI, NOSE: Atraumatic NECK: Trachea midline RESPIRATORY: No increased rate of breathing scattered crackles CARDIOVASCULAR: RRR, no peripheral edema ABDOMINAL: Non-distended soft no guarding or rebound MUSCULOSKELETAl: No obvious deformities NEURO: Alert. Moving 4/4 extremities SKIN:: Warm, dry. Normal color PSYCHIATRIC: Normal affect Course Vital Signs Vital signs: Vital Signs Temperature 98.7 F 11/26/22 19:34 Pulse Rate 90 11/26/22 19:34 Respiratory Rate 18 11/26/22 19:34 Blood Pressure 112/86 11/26/22 19:34 Pulse Oximetry 100 11/26/22 19:34 Oxygen Delivery Room Air 11/26/22 19:34 Temperature 98.7 F 11/26/22 19:34 Pulse Rate 92 11/27/22 03:11 Respiratory Rate 15 11/27/22 03:11 Blood Pressure 1
[2022-11-26 21:51] LABS: Alanine Aminotransferase 34 U/L (6-50); Albumin Level 4.1 g/dL (3.5-5.1); Alkaline Phosphatase 116 U/L (38-126); Anion Gap 13 mmol/L (8-16); Aspartate Amino Transferase 36 U/L (17-59); Bilirubin,Total 0.4 mg/dL (0.2-1.3); Blood Urea Nitrogen 72 mg/dL (9-20); Calcium 13.3 mg/dL (8.4-10.2); Carbon Dioxide 19 mmol/L (22-30); Chloride 106 mmol/L (98-107); Estimated CRCL calculation 23 ml/min; Estimated Glomerular Filt Rate 30; Glucose 186 mg/dL (65-110); Potassium 4.1 mmol/L (3.4-5.0); Sodium 138 mmol/L (137-145)
[2022-11-26 21:58] LABS: Appearance Urine Clear (Clear); Bacteria Urine None Seen /hpf; Bilirubin Urine Negative (Negative); Blood Urine 2+ (Negative); Color Urine Yellow (Yellow); Glucose Urine UA Negative (Negative); Ketones Urine Negative (Negative); Leukocyte Esterase Ur 2+ LEU/UL (Negative); Mucus Urine Present /lpf; Nitrate Urine Negative (Negative); Protein Urine 2+ mg/dL (Negative); RBC Urine 21-50 /hpf (0-2); Specific Grav Ur 1.018 (1.001-1.035); Squamous Epithelial Cell Urine None seen /hpf (Few)
[2022-11-26 22:02] LABS: Add Urine Microscopic? YES
[2022-11-26 22:14] LABS: Creatine Kinase 85 U/L (55-170); Lipase 91 U/L (23-300); Magnesium 1.7 mg/dL (1.6-2.3)
[2022-11-26 22:16] LABS: INR 1.3; Prothrombin Time 16.4 Seconds (11.1-14.7)
[2022-11-26 22:17] LABS: Partial Thromboplastin Time 25.6 SECONDS (22.3-36.8)
[2022-11-26] MEDS: SODIUM CHLORIDE 0.9% IV 2,000 ML 999 ML IV CONT (22:20)
[2022-11-26 22:21] VITALS: BP 130/64; PULSE 88; RESP 18; O2SAT 96
[2022-11-26 22:42] LABS: Thyroid Stimulating Hormone Reflex 0.895 uIU/mL (0.465-4.68)
[2022-11-26 22:51] LABS: Troponin I 0.071 ng/mL (0.000-0.034)
[2022-11-26 22:53] LABS: Lactic Acid Reflex 3.8 mmol/L (0.7-2.0)
--- NOTE | 2022-11-26 23:16 | PC.NURSE ---
EDT found pt to be 88% on room air and informed Dr. Carpenter. Pt placed on 2L NC.
[2022-11-26 23:17] VITALS: O2SAT 99
[2022-11-26 23:26] LABS: NT Pro B Type Natriuretic Pept 1390 pg/mL (19.9-100)
[2022-11-27] VITALS (63 sets, daily range): BP systolic 107–158; BP diastolic 58–108; PULSE 74–102; RESP 14–35; TEMP 36.3–37.1; O2SAT 91–100; BMI 21.1
--- NOTE | 2022-11-27 | ECHO_ITS ---
Patient Info Name: Marco Antonio Arboleda Age: 82 years : 1940 Gender: Male Ht: 71 in Wt: 151 lbs BSA: 1.85 m2 HR: 79 bpm BP: 140 / 67 mmHg Heart Rhythm: Sinus Rhythm Technical Quality: Fair Exam Date: 11/27/2022 1:05 PM Exam Location: [facility] Patient Status: Inpatient Admit Date: 11/27/2022 Staff Ordering Physician: Andrea Martin APRN Instrument Operator: Aspen Sears RDCS Attending Provider: Andrea Martin APRN Referring Physician: Mario FRANKS; Exam Type: CA echo doppler w bubble study Study Info Indications - PE with evidence of right heart strain on CT scan Complete two-dimensional, color flow and Doppler transthoracic echocardiogram is performed with agitated saline. Contrast/Agitated Saline Contrast/Ag. Saline: Agitated Saline Amount: 20.00 ml Existing IV Access: Yes IV Access Condition: patent with no signs of infiltration Summary 1. Left ventricular chamber dimension is normal. 2. Left ventricular systolic function is normal, estimated at 60-65%. 3. There is mild concentric increased left ventricular wall thickness. 4. The left ventricular diastolic function is grade I diastolic dysfunction. 5. E/e' 13 is mildly elevated. 6. Right ventricular chamber dimension is mildly enlarged. 7. There is mild aortic valve sclerosis. 8. Mild pulmonary hypertension, estimated pulmonary arterial systolic pressure is 43 mmHg. Left Ventricle E/e' 13 is mildly elevated. Left ventricular chamber dimension is normal. Left ventricular systolic function is normal, estimated at 60-65%. There is mild concentric increased left ventricular wall thickness. The left ventricular diastolic function is grade I diastolic dysfunction. Right Ventricle Right ventricular systolic function is normal and with normal TAPSE 2.9 cm. Right ventricular chamber dimension is mildly enlarged. Left Atria Left atrial chamber dimension is normal. Right Atria Right atrial chamber dimension is normal. Atrial Septum Agitated saline injection with and without valsalva maneuver opacified right side cardiac chambers without obvious shunt to left side cardiac chambers. Intact interatrial septum visualized by 2D and agitated saline imaging. Aortic Valve The aortic valve is trileaflet. There is mild aortic valve sclerosis. There is no aortic valve stenosis. There is no aortic valve regurgitation. Pulmonic Valve There is no pulmonic regurgitation. Mitral Valve There is no mitral valve stenosis. There is no mitral valve regurgitation. Tricuspid Valve There is no tricuspid valve regurgitation. Mild pulmonary hypertension, estimated pulmonary arterial systolic pressure is 43 mmHg. Pericardium/Pleural There is no pericardial effusion. Inferior Vena Cava Normal inferior vena cava with >50% collapse upon inspiration consistent with normal right atrial pressure, 5 mmHg. Aorta The aortic root size at the sinus of Valsalva is normal. Left Ventricular Outflow Tract Name Value Normal LVOT 2D LVOT Diameter 2.1 cm LVOT Doppler LVOT Peak Gradient 2 mmHg LVOT Mean Gradient 1 mmHg LVOT VTI
[2022-11-27] MEDS: CEFEPIME 2 GM/NS 50 ML 2 GM/50 ML BAG IVPB ×2 (00:54→21:43)
[2022-11-27] MEDS: AZITHROMYCIN 500 MG/NS 250 ML 500 MG/250 ML BAG 250 MG IVPB ×2 (01:28→20:21)
[2022-11-27 01:37] LABS: Reflex Lactic Acid Yes or No Add Lactic
[2022-11-27] MEDS: ENOXAPARIN 80 MG/0.8 ML SYRINGE 70 MG SUB-Q (01:41)
[2022-11-27 05:10] LABS: Influenza A QL RT-PCR Negative (Negative); Influenza B QL RT-PCR Negative (Negative); RSV RNA, RT-PCR Negative (Negative); SARS-CoV-2 RNA PCR Negative (Negative)
[2022-11-27 08:04] LABS: Lactic Acid 1.1 mmol/L (0.7-2.0)
[2022-11-27 08:31] LABS: Troponin I 0.079 ng/mL (0.000-0.034)
--- NOTE | 2022-11-27 09:44 | ECG_ITS ---
Measurements Intervals Colbert Rate: 83 P: -13 CT: 195 QRS: 29 QRSD: 155 T: -9 QT: 384 QTc: 453 Interpretive Statements SINUS RHYTHM WITH OCCASIONAL SUPRAVENTRICULAR PREMATURE COMPLEXES RIGHT BUNDLE BRANCH BLOCK [120+ ms QRS DURATION, UPRIGHT V1, 40+ ms S IN I/aVL/V4/V5/V6] WARNING: DATA QUALITY MAY AFFECT INTERPRETATION COMPARED TO ECG 11/26/2022 22:36:45 SINUS RHYTHM NOW PRESENT RIGHT BUNDLE-BRANCH BLOCK NOW PRESENT Electronically Signed On 12-01-2022 13:03:25 CDT by Magdi Bang M.D.
--- NOTE | 2022-11-27 10:03 | PM.IMHP ---
H&P: HPI History of Present Illness Date/Time: 11/27/22 10:03 Chief Complaint: Pulmonary embolism with hypoxia Urinary retention with vincent catheter in place GEETA Generalized weakness Lactic acidosis Hypercalcemia Lung mass-previously known and not actively treated Narrative: This is an 82-year-old male patient with a past history of BPH, CAD, type 2 diabetes, hypertension, dementia, anemia and TIA who presented to the emergency department overnight after abnormal labs noted at the rehab facility. Patient was admitted to the hospital for 5 days last week (11/20 through 11/24) due to urinary retention GEETA and weakness. On evaluation in the emergency department patient noted to become hypoxic on room air and further workup was initiated. Patient found to have pulmonary emboli with evidence of right heart strain on CTA of the chest with concurrent troponin elevation and elevation of BNP. Labs also revealed return of GEETA with a creatinine of 2.1 and BUN in the 70s. Patient also noted to have lactic acidosis at 3.8. His Vincent catheter remains in place from prior hospitalization. Patient has known lung cancer that is not being treated at this time and patient has DNR/DNI code status. He was started on Lovenox in the emergency department and admitted for further evaluation and care planning. Previous primary care and Cardiology have been with providers in [place]. Review of Systems Review of Systems: All systems reviewed & are unremarkable except as noted in HPI and below Constitutional: Comments: patient reports poor appetite and does not eat or drink regularly Cardiovascular: Comments: No chest pain or shortness of breath on supplemental oxygen Respiratory: Comments: no shortness of breath on supplemental oxygen, no productive cough or coughing up blood Gastrointestinal: Comments: no abdominal pain Genitourinary: Comments: no pain or bleeding from vincent catheter site [facility] Past Medical History Medical History Anemia BPH (benign prostatic hyperplasia) CAD (coronary artery disease) Dementia DM2 (diabetes mellitus, type 2) HTN (hypertension), malignant Hx of primary tuberculosis Hyperlipidemia TIA (transient ischemic attack) Surgical History Surgical History H/O cataract extraction 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 He has 5 children. He is retired from the [employer]. It occasionally drinks a beer. His is the durable power of tax associate attorney for healthcare code status full code Smoking status: Never smoker Alcohol intake: never Substance use: never Substance use type: does not use Lack of Transportation: No Lack of Food: Never True Current Housing: I Have Housing Concerned About Future Housing: No Difficulty Paying Gas/Electric Bills: No Difficulty Paying for Meds: No Currently Unemployed: No Education: Don't Know Difficulty w/ Childcare or Family Care: No Spiritual care concerns: No Meds Home Medications and Allergies Home Medications Medication Instructions Recorded Confirmed Type aspirin 81 mg chewable tablet 81 mg PO DAILY 11/20/22 11/20/22 History atorvastatin 20 mg tablet 20 mg PO DAILY 11/20/22 11/20/22 History clopidogrel 75 mg tablet (Plavix) 75 mg PO DAILY 11/20/22 11/20/22 History cyanocobalamin (vitamin B-12) 1,000 mcg subcut MONTHLY 11/20/22 11/20/22 History 1,000 mcg/mL injection solution (Dodex) donepezil 10 mg tabl
[2022-11-27 12:59] LABS: Glucose Point of Care 141 mg/dl (65-105)
[2022-11-27] MEDS: LACTATED RINGERS 1,000 ML 75 ML IV CONT (13:34)
[2022-11-27] MEDS: ZOLEDRONIC ACID 4 MG/100 ML 100 ML 400 MG IVPB (13:34)
[2022-11-27 14:05] LABS: Glucose Point of Care 143 mg/dl (65-105)
[2022-11-27 14:58] LABS: Anion Gap 4 mmol/L (8-16); Blood Urea Nitrogen 56 mg/dL (9-20); Calcium 12.1 mg/dL (8.4-10.2); Carbon Dioxide 26 mmol/L (22-30); Chloride 107 mmol/L (98-107); Estimated CRCL calculation 32 ml/min; Estimated Glomerular Filt Rate 45; Glucose 157 mg/dL (65-110); Potassium 3.6 mmol/L (3.4-5.0); Sodium 137 mmol/L (137-145)
[2022-11-27 15:28] LABS: Parathyroid Intact 5.5 pg/mL (7.5-53.5)
[2022-11-27 17:22] LABS: Glucose Point of Care 129 mg/dl (65-105)
[2022-11-27 21:19] LABS: Glucose Point of Care 142 mg/dl (65-105)
[2022-11-28] VITALS (13 sets, daily range): BP systolic 136–168; BP diastolic 63–78; PULSE 73–107; RESP 20; TEMP 36.4–37.4; O2SAT 94–100
--- NOTE | 2022-11-28 02:12 | PC.NURSE ---
11/27/22 at 0100. Received call from Joanne Nesbitt NP to restart amiodarone at 0.5mg. Patient in afib rhythm with heart rate of 120's to 140's.
[2022-11-28] MEDS: LACTATED RINGERS 1,000 ML 75 ML IV CONT ×2 (04:49→19:41)
[2022-11-28 05:00] LABS: Basophils Absolute Auto 0.1 K/mm3 (0.0-0.1); Basophils Percent Auto 0.4 % (0.2-1.2); Eosinophils Absolute Auto 0.1 K/mm3 (0-0.3); Eosinophils Percent Auto 0.7 % (0-4.4); Hematocrit 27.9 % (42.0-52.0); Hemoglobin 8.8 g/dL (14.0-18.0); Immature Granulocyte Absolute 0.14 K/mm3 (0.00-0.031); Immature Granulocyte Percent A 0.9 % (0-0.5); Lymphocytes Absolute Auto 1.31 K/mm3 (0.9-3.2); Lymphocytes Percent Auto 8.7 % (18.3-44.2); Mean Corpuscular HGB Conc 31.5 g/dl (32-36); Mean Corpuscular Hemoglobin 28.3 pg (26-34); Mean Corpuscular Volume 89.7 fl (80-100); Mean Platelet Volume 9.2 fl (7.4-10.4); Monocytes Absolute Auto 1.5 K/mm3 (0.1-0.6); Monocytes Percent Auto 9.8 % (2.6-8.5); Neutrophils Absolute Auto 11.9 K/mm3 (1.3-6.7); Neutrophils Percent Auto 79.5 % (45.5-73.1); Platelet Count Result 466 k/mm3 (150-375); Red Blood Count 3.11 M/mm3 (4.6-6.20)
[2022-11-28 05:37] LABS: Anion Gap 3 mmol/L (8-16); Blood Urea Nitrogen 43 mg/dL (9-20); Carbon Dioxide 28 mmol/L (22-30); Chloride 106 mmol/L (98-107); Estimated CRCL calculation 43 ml/min; Estimated Glomerular Filt Rate > 60; Glucose 142 mg/dL (65-110); Potassium 3.5 mmol/L (3.4-5.0); Sodium 137 mmol/L (137-145)
[2022-11-28 07:21] LABS: Hemoglobin A1C 6.2 % (<5.7)
[2022-11-28 08:09] LABS: Glucose Point of Care 151 mg/dl (65-105)
[2022-11-28] MEDS: VANCOMYCIN 1,000 MG/NS 250 ML 1,000 MG/250 ML BAG 250 MG IVPB (09:28)
--- NOTE | 2022-11-28 10:37 | PM.IMPN ---
Progress Note: A&P Assessment and Plan (1) Pulmonary embolism: Qualifiers: Acute cor pulmonale presence: with acute cor pulmonale Chronicity: acute Pulmonary embolism type: other Qualified Code(s): I26.09 - Other pulmonary embolism with acute cor pulmonale Code(s): I26.99 - Other pulmonary embolism without acute cor pulmonale Status: Acute Assessment and Plan: Patient remains on subcutaneous Lovenox injection as well as supplemental oxygen at 2 liters/minute without respiratory distress. Echocardiogram completed yesterday with sufficient ventricular function and an EF 60-65% (2) GEETA (acute kidney injury): Code(s): N17.9 - Acute kidney failure, unspecified Status: Acute Assessment and Plan: GEETA improved with intravenous fluid administration. Philippe catheter remains in place. Patient afebrile. Continue Philippe due to urethral stricture and plan to pursue comfort measures. (3) Paroxysmal A-fib: Code(s): I48.0 - Paroxysmal atrial fibrillation Status: Acute Assessment and Plan: On auscultation patient is rhythm is irregularly irregular. Cardiac telemetry viewed in lead 2 showing atrial fibrillation rate sustaining in the 90s to low 100s. No change in plan of care as patient family our consult with hospice. Will consider discontinuing telemetry and transfer patient to [facility]. (4) Dysphagia: Code(s): R13.10 - Dysphagia, unspecified Status: Acute Assessment and Plan: Progressive difficulty swallowing reported upon admission. Ordered thickened liquids. Deferred swallow study as family and patient prefer to consult with hospice. (5) Obstructed, uropathy: Code(s): N13.9 - Obstructive and reflux uropathy, unspecified Status: Acute Assessment and Plan: Philippe catheter remains patent and intact. We will maintain catheter as part of comfort measures. Plan Consult with [facility] for evaluation and plan to discharge home. Until hospice plan is signed we will continue conservative management with IV fluids, subcutaneous Lovenox, supplemental oxygen and continuation home medications. At this time patient denies any significant pain or discomfort. He is much more alert today. His wishes have been made known to this provider nursing staff and family. Patient will remain DNR status. Time Spent With Patient Time with patient: Greater than 35 minutes (Over 45 minutes spent discussing with family risks and benefits of hospice versus aggressive treatment.) Subjective Date/time seen: 11/28/22 10:37 Interval history: This is an 82-year-old male patient admitted to the hospital for hypoxia related to pulmonary embolism related to suspected lung and suspected renal cancer. Patient was admitted due to weakness and found to significantly decreased oral intake of food and fluids the past couple weeks. When he was readmitted he was noted to be significantly dehydrated and was fluid resuscitated. Due to low oral intake patient was started on continuous IV fluids. This morning patient is more alert awake interactive and is eating and drinking independently. No acute events overnight. Patient remains on oxygen at 2 liters/minute via nasal cannula. Patient remains on IMU with plan to transfer to [facility] today. Family planning to consult for hospice care at home due to no desire for aggressive cancer diagnosis and treatment. Patient and family are refusing placement of temporary feeding tube to assist with hydration and calorie needs in the setting of increasing dysphagia. While patient is alert and oriented this morning he was able to re-emphasized his wishes for no feeding tube with and no aggressive cancer treatment. Patient is in support family pursuing hospice care at home. Patient is able to understand conversation and repeat back a summary risks and benefits related to aggressive versus comfort treatment. Patient repeatedly reassured family
--- NOTE | 2022-11-28 11:16 | PCPTNOTE ---
LUCIA Angel, reports patient's family is leaning towards hospice and to hold off on evaluation for now. Will check back tomorrow.
[2022-11-28 11:41] LABS: Glucose Point of Care 357 mg/dl (65-105)
[2022-11-28] MEDS: METOPROLOL TARTRATE 50 MG TAB 100 MG PO ×2 (13:28→21:23)
[2022-11-28] MEDS: ASPIRIN 81 MG CHEWABLE TABLET PO (13:28)
[2022-11-28] MEDS: FINASTERIDE 5 MG TABLET PO (13:28)
[2022-11-28] MEDS: NIFEdipine 30 MG TAB.ER.24 PO (13:28)
[2022-11-28] MEDS: DONEPEZIL HCL 10 MG TABLET PO (13:28)
[2022-11-28] MEDS: CLOPIDOGREL BISULFATE 75 MG TABLET PO (13:28)
--- NOTE | 2022-11-28 15:28 | PC.NURSE ---
This patient, Marco Antonio Arboleda Jr., was transferred to [facility] on 11/28/22 at 1529. Personal belongings sent with patient. Report given to Lester MYERS. Appropriate documentation sent with patient.
[2022-11-28 16:35] LABS: Glucose Point of Care 156 mg/dl (65-105)
[2022-11-28] MEDS: ENOXAPARIN 80 MG/0.8 ML SYRINGE 70 MG SUB-Q ×2 (21:21)
[2022-11-28] MEDS: AZITHROMYCIN 500 MG/NS 250 ML 500 MG/250 ML BAG 250 MG IVPB (21:27)
[2022-11-28 21:46] LABS: Glucose Point of Care 172 mg/dl (65-105)
[2022-11-28] MEDS: CEFEPIME 2 GM/NS 50 ML 2 GM/50 ML BAG IVPB (23:01)
[2022-11-29] VITALS (7 sets, daily range): BP systolic 120–141; BP diastolic 59–72; PULSE 65–86; RESP 18–22; TEMP 36.3–37.3; O2SAT 90–100
[2022-11-29 07:40] LABS: Anion Gap 3 mmol/L (8-16); Blood Urea Nitrogen 37 mg/dL (9-20); Calcium 11.1 mg/dL (8.4-10.2); Carbon Dioxide 31 mmol/L (22-30); Chloride 100 mmol/L (98-107); Estimated CRCL calculation 47 ml/min; Estimated Glomerular Filt Rate > 60; Glucose 159 mg/dL (65-110); Potassium 3.2 mmol/L (3.4-5.0); Sodium 134 mmol/L (137-145)
[2022-11-29 07:42] LABS: Glucose Point of Care 164 mg/dl (65-105)
[2022-11-29 08:02] LABS: Basophils Absolute Auto 0.1 K/mm3 (0.0-0.1); Basophils Percent Auto 0.5 % (0.2-1.2); Eosinophils Absolute Auto 0.2 K/mm3 (0-0.3); Eosinophils Percent Auto 1.3 % (0-4.4); Hematocrit 26.2 % (42.0-52.0); Hemoglobin 8.2 g/dL (14.0-18.0); Immature Granulocyte Absolute 0.16 K/mm3 (0.00-0.031); Immature Granulocyte Percent A 1.2 % (0-0.5); Lymphocytes Percent Auto 9.8 % (18.3-44.2); Mean Corpuscular HGB Conc 31.3 g/dl (32-36); Mean Corpuscular Volume 89.4 fl (80-100); Mean Platelet Volume 9.4 fl (7.4-10.4); Monocytes Absolute Auto 1.4 K/mm3 (0.1-0.6); Monocytes Percent Auto 10.6 % (2.6-8.5); Neutrophils Absolute Auto 10.1 K/mm3 (1.3-6.7); Neutrophils Percent Auto 76.6 % (45.5-73.1); Platelet Count Result 467 k/mm3 (150-375); Red Blood Count 2.93 M/mm3 (4.6-6.20); Red Cell Distribution Width 15.8 % (11.5-14.5); White Blood Count 13.3 K/mm3 (4.5-10.0)
[2022-11-29 08:15] LABS: Vancomycin Trough 10.2 ug/mL (10.0-20.0)
[2022-11-29] MEDS: LACTATED RINGERS 1,000 ML 75 ML IV CONT (08:48)
[2022-11-29] MEDS: VANCOMYCIN 1,000 MG/NS 250 ML 1,000 MG/250 ML BAG 250 MG IVPB (08:48)
[2022-11-29] MEDS: POTASSIUM CHLORIDE 20 MEQ PACKET (FOR LIQUID) 40 MEQ PO (08:49)
[2022-11-29 11:42] LABS: Glucose Point of Care 176 mg/dl (65-105)
[2022-11-29] MEDS: METOPROLOL TARTRATE 50 MG TAB 100 MG PO ×2 (12:17→21:11)
[2022-11-29] MEDS: DONEPEZIL HCL 10 MG TABLET PO (12:17)
[2022-11-29] MEDS: FINASTERIDE 5 MG TABLET PO (12:18)
[2022-11-29] MEDS: CLOPIDOGREL BISULFATE 75 MG TABLET PO (12:18)
[2022-11-29] MEDS: ASPIRIN 81 MG CHEWABLE TABLET PO (12:20)
--- NOTE | 2022-11-29 13:10 | PM.IMPN ---
Progress Note: A&P Assessment and Plan (1) Pulmonary embolism: Qualifiers: Acute cor pulmonale presence: with acute cor pulmonale Chronicity: acute Pulmonary embolism type: other Qualified Code(s): I26.09 - Other pulmonary embolism with acute cor pulmonale Code(s): I26.99 - Other pulmonary embolism without acute cor pulmonale Status: Acute Assessment and Plan: CTA shows pulmonary embolism bilaterally. Echo showed mild pulmonary hypertension. On supplemental oxygen denies dyspnea. Treating renal based Lovenox. (2) Hypercalcemia: Code(s): E83.52 - Hypercalcemia Status: Acute Assessment and Plan: Likely related to lung cancer will be. Chronic, stable and improving. (3) GEETA (acute kidney injury): Code(s): N17.9 - Acute kidney failure, unspecified Status: Acute Assessment and Plan: Improved reduction in BUN and creatinine likely influenced by IV fluids and Philippe catheter due to urethral stricture and retention. Continue IV fluids until hospice care begins. (4) Lung mass: Code(s): R91.8 - Other nonspecific abnormal finding of lung field Status: Acute Assessment and Plan: Known lung mass with several nodules/lymph node enhancements consistent with metastatic cancer. Patient/family have chosen not to pursue curative care. (5) Renal mass: Code(s): N28.89 - Other specified disorders of kidney and ureter Status: Acute Assessment and Plan: Newly identified right renal mass seen on CT on this visit, presumed metastasis. (6) Urinary retention: Code(s): R33.9 - Retention of urine, unspecified Status: Acute Assessment and Plan: Chronic indwelling Philippe originally placed due to retention related to urethral stricture (7) DM2 (diabetes mellitus, type 2): Qualifiers: Diabetes mellitus tank pumper insulin use: without tank pumper use Diabetes mellitus complication status: without complication Qualified Code(s): E11.9 - Type 2 diabetes mellitus without complications Code(s): E11.9 - Type 2 diabetes mellitus without complications Status: Acute Assessment and Plan: Stable, continue low dose correction sliding scale (8) Dementia: Qualifiers: Dementia behavioral or psychological symptom: unspecified whether behavioral, psychotic, or mood disturbance or anxiety Dementia severity: unspecified severity Dementia type: unspecified type Qualified Code(s): F03.90 - Unspecified dementia, unspecified severity, without behavioral disturbance, psychotic disturbance, mood disturbance, and anxiety Code(s): F03.90 - Unspecified dementia, unspecified severity, without behavioral disturbance, psychotic disturbance, mood disturbance, and anxiety Status: Acute Assessment and Plan: Alert to baseline status now. (9) Essential hypertension: Code(s): I10 - Essential (primary) hypertension Status: Acute Assessment and Plan: Stable on home medications (10) CAD (coronary artery disease): Code(s): I25.10 - Atherosclerotic heart disease of [place] coronary artery without angina pectoris Status: Acute Assessment and Plan: Stable on home medications Plan Continue existing care until hospice care begins DNR/DNI Time Spent With Patient Time with patient: Greater than 35 minutes Subjective Date/time seen: 11/29/22 13:10 Interval history: This is an 82 year old male patient admitted to the Hospitalist service due to PE with hypoxia. Care planning includes going home on hospice care. Until arrangements can be made hospice service we are continuing IV antibiotics, IV fluids, anticoagulation and supplemental oxygen. Patient is awake and alert but disoriented which is his noted baseline mental status. Patient states he did not rest well overnight as there was a lot of noise. Patient's gown was very disheveled and wrapped around his arm 3 time
[2022-11-29 16:46] LABS: Glucose Point of Care 191 mg/dl (65-105)
[2022-11-29 20:51] LABS: Glucose Point of Care 210 mg/dl (65-105)
[2022-11-29] MEDS: ENOXAPARIN 80 MG/0.8 ML SYRINGE 70 MG SUB-Q (21:04)
[2022-11-29] MEDS: CEFEPIME 2 GM/NS 50 ML 2 GM/50 ML BAG IVPB (21:53)
[2022-11-29] MEDS: INSULIN ASPART (*BKC) 100 UNITS/ML SUB-Q (22:23)
[2022-11-29] MEDS: AZITHROMYCIN 500 MG/NS 250 ML 500 MG/250 ML BAG 250 MG IVPB (22:40)
[2022-11-30] VITALS (8 sets, daily range): BP systolic 117–143; BP diastolic 57–86; PULSE 71–85; RESP 12–22; TEMP 36.5–36.8; O2SAT 91–97
[2022-11-30] MEDS: VANCOMYCIN 1,000 MG/NS 250 ML 1,000 MG/250 ML BAG 250 MG IVPB (03:20)
[2022-11-30 07:40] LABS: Glucose Point of Care 143 mg/dl (65-105)
[2022-11-30 11:26] LABS: Glucose Point of Care 177 mg/dl (65-105)
--- NOTE | 2022-11-30 11:40 | PM.IMPN ---
Progress Note: A&P Assessment and Plan (1) Pulmonary embolism: Qualifiers: Acute cor pulmonale presence: with acute cor pulmonale Chronicity: acute Pulmonary embolism type: other Qualified Code(s): I26.09 - Other pulmonary embolism with acute cor pulmonale Code(s): I26.99 - Other pulmonary embolism without acute cor pulmonale Status: Acute Assessment and Plan: Patient admitted for pulmonary embolism echocardiogram shows mild pulmonary hypertension. Continue Lovenox until discharge (2) Hypercalcemia: Code(s): E83.52 - Hypercalcemia Status: Acute Assessment and Plan: Likely related to presumed metastatic cancer, stable without symptoms, no further treatment necessary. (3) GEETA (acute kidney injury): Code(s): N17.9 - Acute kidney failure, unspecified Status: Acute Assessment and Plan: GEETA related to dehydration has improved with IV and now better oral hydration. (4) Lung mass: Code(s): R91.8 - Other nonspecific abnormal finding of lung field Status: Acute Assessment and Plan: Large pre-existing the mass with multiple nodules and lymph node swelling noted on CT scan. Newly identified right renal mass presumed to be metastatic. For this reason, patient and family decided on hospice rather than pursue invasive diagnosis and treatment. (5) Renal mass: Code(s): N28.89 - Other specified disorders of kidney and ureter Status: Acute Assessment and Plan: See above (6) Urinary retention: Code(s): R33.9 - Retention of urine, unspecified Status: Acute Assessment and Plan: Philippe catheter in place, chronic due to urethral stricture. No plans to exchange operator. (7) DM2 (diabetes mellitus, type 2): Qualifiers: Diabetes mellitus half-way insulin use: without half-way use Diabetes mellitus complication status: without complication Qualified Code(s): E11.9 - Type 2 diabetes mellitus without complications Code(s): E11.9 - Type 2 diabetes mellitus without complications Status: Acute Assessment and Plan: Stable. No changes in plan until discharge. (8) Dementia: Qualifiers: Dementia behavioral or psychological symptom: unspecified whether behavioral, psychotic, or mood disturbance or anxiety Dementia severity: unspecified severity Dementia type: unspecified type Qualified Code(s): F03.90 - Unspecified dementia, unspecified severity, without behavioral disturbance, psychotic disturbance, mood disturbance, and anxiety Code(s): F03.90 - Unspecified dementia, unspecified severity, without behavioral disturbance, psychotic disturbance, mood disturbance, and anxiety Status: Acute Assessment and Plan: Stable, patient cooperative with care. Family assisting with patient needs and have plans for round the clock family presence at home. Plan Continue routine/previously ordered medical care while in hospital. Plan Discharge to home on hospice with [facility]. Estimated date of discharge tomorrow, 12/01/22 Deescalate antibiotics based on urine culture and sensitivity per ID Pharm consult recommendations. Time Spent With Patient Time with patient: 25 - 35 minutes Subjective Date/time seen: 11/30/22 11:40 Interval history: This is an 82-year-old male patient who was admitted to the hospital service with acute pulmonary embolism and hypoxia. During hospital stay patient and family have chosen to pursue hospice care due to presumed metastatic lung cancer with renal mass. During hospital stay patient has continued usual medical care but forgoing aggressive management. Patient initially seen this morning and was sleeping peacefully with normal RR/HR/cardiac rhythm. Patient seen for full evaluation after meeting with hospice company [employer]. Patient is aware of and agreeing to hospice care at home. He denies complaints at this time. Patient states he rested
[2022-11-30] MEDS: ENOXAPARIN 80 MG/0.8 ML SYRINGE 70 MG SUB-Q (18:04)
[2022-11-30] MEDS: AMOXICILLIN 500 MG CAPSULE PO (21:05)
[2022-11-30] MEDS: METOPROLOL TARTRATE 50 MG TAB 100 MG PO (21:05)
[2022-12-01] MEDS: ENOXAPARIN 80 MG/0.8 ML SYRINGE 70 MG SUB-Q (04:05)
[2022-12-01 05:00] VITALS: BP 123/70; PULSE 91; RESP 20; TEMP 36.5; O2SAT 98
[2022-12-01] MEDS: AMOXICILLIN 500 MG CAPSULE PO ×2 (05:30→15:09)
--- NOTE | 2022-12-01 07:13 | PM.DS ---
DS: Admitting Diagnosis Discharge Date 12/01/2022 Admitting Diagnosis Pulmonary embolism GEETA Obstructed uropathy Hypercalcemia DM2 Dementia Generalized weakness Lactic acidosis Leukocytosis Lung mass DS: Discharge Diagnosis Discharge Diagnosis (1) Pulmonary embolism: Qualifiers: Acute cor pulmonale presence: with acute cor pulmonale Chronicity: acute Pulmonary embolism type: other Qualified Code(s): I26.09 - Other pulmonary embolism with acute cor pulmonale Code(s): I26.99 - Other pulmonary embolism without acute cor pulmonale Status: Acute (2) Lung mass: Code(s): R91.8 - Other nonspecific abnormal finding of lung field Status: Acute (3) Renal mass: Code(s): N28.89 - Other specified disorders of kidney and ureter Status: Acute (4) Generalized weakness: Code(s): R53.1 - Weakness Status: Acute (5) Dementia: Qualifiers: Dementia behavioral or psychological symptom: unspecified whether behavioral, psychotic, or mood disturbance or anxiety Dementia severity: unspecified severity Dementia type: unspecified type Qualified Code(s): F03.90 - Unspecified dementia, unspecified severity, without behavioral disturbance, psychotic disturbance, mood disturbance, and anxiety Code(s): F03.90 - Unspecified dementia, unspecified severity, without behavioral disturbance, psychotic disturbance, mood disturbance, and anxiety Status: Acute (6) HTN (hypertension), malignant: Code(s): I10 - Essential (primary) hypertension Status: Acute (7) Paroxysmal A-fib: Code(s): I48.0 - Paroxysmal atrial fibrillation Status: Acute (8) GEETA (acute kidney injury): Code(s): N17.9 - Acute kidney failure, unspecified Status: Acute (9) Obstructed, uropathy: Code(s): N13.9 - Obstructive and reflux uropathy, unspecified Status: Acute (10) Hypercalcemia: Code(s): E83.52 - Hypercalcemia Status: Acute (11) DM2 (diabetes mellitus, type 2): Qualifiers: Diabetes mellitus retirement insulin use: without retirement use Diabetes mellitus complication status: without complication Qualified Code(s): E11.9 - Type 2 diabetes mellitus without complications Code(s): E11.9 - Type 2 diabetes mellitus without complications Status: Acute (12) Anemia: Code(s): D64.9 - Anemia, unspecified Status: Acute Plan Continue oral antibiotics upon discharge to patient suffering pyelonephritis. Patient discharged to on hospice. May continue home medications deemed important for patient comfort Patient may eat and drink anything that he pleases DS: Summary Hospital Course Reason for hospitalization: Pulmonary embolism with hypoxia requiring oxygen, generalized weakness and UTI with lactic acidosis and GEETA were discovered and patient admitted for further care. Hospital Course: This is an 82-year-old male patient who was worked up for hypoxia and generalized weakness found to have lactic acidosis and GEETA. On further evaluation pulmonary embolism was discovered as well as findings consistent with lung cancer with metastasis and new development of right renal mass suspected to be metastatic from prior lung mass. After extensive discussion with patient and family they elected for DNR status with conservative medical management while consulting with hospice care. Patient was arranged for discharge with [facility] and was managed medically until date of discharge once home was set up to receive patient. UTI initially treated with IV antibiotics transition to oral amoxicillin. Patient received IV fluids for several days as he was having difficulty swallowing. As patient condition improved he was able to swallow better allowing him to eat and drink independently. patient and family declined offer for biopsy and treatment for suspected malignancy. Until discharge patient was treated with Lovenox
[2022-12-01] MEDS: CLOPIDOGREL BISULFATE 75 MG TABLET PO (08:38)
[2022-12-01 08:39] VITALS: PULSE 61
[2022-12-01] MEDS: ASPIRIN 81 MG CHEWABLE TABLET PO (08:39)
[2022-12-01] MEDS: METOPROLOL TARTRATE 50 MG TAB 100 MG PO (08:39)
[2022-12-01] MEDS: NIFEdipine 30 MG TAB.ER.24 PO (08:39)
[2022-12-01] MEDS: DONEPEZIL HCL 10 MG TABLET PO (08:39)
[2022-12-01] MEDS: FINASTERIDE 5 MG TABLET PO (08:39)
[2022-12-01 09:38] VITALS: O2SAT 95
[2022-12-01 14:00] VITALS: BP 133/66; PULSE 69; RESP 18; TEMP 36.3; O2SAT 98
== END 2022-12-01 16:30 | disposition hospice, home (50) | DRG 175 ==
LOC: ANHED 11-27 05:55 → ANHIMU 11-27 08:35 → ANH3MEDSUR 11-28 15:19
PROVIDERS: Admitting Provider Internal Medicine; Emergency Provider Emergency Medicine; PCP Internal Medicine; Visit Provider Nurse Practitioner
DX: I26.09 Other pulmonary embolism with acute cor pulmonale (principal); N17.9 Acute kidney failure, unspecified; C34.92 Malignant neoplasm of unspecified part of left bronchus or lung; C79.01 Secondary malignant neoplasm of right kidney and renal pelvis; E87.20 Acidosis, unspecified; N10 Acute pyelonephritis; R09.02 Hypoxemia; Z20.822 Contact with and (suspected) exposure to COVID-19; F03.90 Unspecified dementia, unspecified severity, without behavioral disturbance, psychotic disturbance, mood disturbance, and anxiety; I48.0 Paroxysmal atrial fibrillation; E83.52 Hypercalcemia; I10 Essential (primary) hypertension; E11.9 Type 2 diabetes mellitus without complications; R13.10 Dysphagia, unspecified; D64.9 Anemia, unspecified; E86.0 Dehydration; N40.0 Benign prostatic hyperplasia without lower urinary tract symptoms; I25.10 Atherosclerotic heart disease of native coronary artery without angina pectoris; E78.5 Hyperlipidemia, unspecified; Z66 Do not resuscitate; Z86.73 Personal history of transient ischemic attack (TIA), and cerebral infarction without residual deficits; Z86.11 Personal history of tuberculosis; Z95.2 Presence of prosthetic heart valve; Z95.5 Presence of coronary angioplasty implant and graft
CPT/HCPCS: 36415; 70450; 71045; 71275; 72131; 80048; 80053; 80202; 81001; 82550; 82948; 83036; 83605; 83690; 83735; 83880; 83970; 84443; 84484; 85025; 85610; 85730; 87040; 87077; 87081; 87086; 87088; 87186; 87637; 93005; 93306; 96361; 96365; 96366; 96367; 96372; 96375; 99291; A9270; J0456; J0692; J1650; J1815; J3370; J3489; J7030; J7120; Q9967